=== PATIENT | female | born 1965 | race Two or more races ===

== ENCOUNTER 2018-07-17 09:11 | Emergency (ER) | payer SELFPAY ==
[~2018-07-17] VITALS: Ht 152.4 cm; Wt 119.7 kg
[2018-07-17] MEDS ORDERED: SODIUM CHLORIDE 0.9% 1,000 ML IV ONE ×2 (09:41)
[2018-07-17] MEDS ORDERED: LIDOCAINE VISCOUS 2% 15ML UD PO ONE (09:45)
[2018-07-17] MEDS ORDERED: ALUM & MAG HYDROX-SIMETH LIQ(MAALOX) 30 ML PO ONE (09:45)
[2018-07-17] MEDS ORDERED: DONNATAL 5ml ORAL Elix (BELLADONNA ALK-PHENOBARB) PO ONE (09:45)
[2018-07-17 09:48] LABS: Basophils # (auto) 0 uL; Basophils % (auto) 0.5 % (0.0-2.0); Eosinophils # (auto) 0.1 uL; Eosinophils % (auto) 2.1 % (0.0-7.0); Hematocrit 40.8 % (36.0-46.0); Hemoglobin 13.4 g/dL (12.2-16.2); Lymphocytes # (auto) 1.7 uL; Mean Corpuscular Hemoglobin 29.3 pg (28.0-32.0); Mean Corpuscular Hgb Conc. 32.9 g/dL (32.0-36.0); Mean Corpuscular Volume 89.1 fL (80.0-100.0); Monocytes # (auto) 0.6 uL; Monocytes % (auto) 8.7 % (0.0-12.0); Neutrophils % (auto) 61.7 % (37.0-80.0); Platelet Count (auto) 357 10^3/uL (140-450); Red Blood Cells 4.58 10^6/uL (4.0-5.20); Red Cell Distribution Width 13.8 % (11.8-14.3); White Blood Cell 6.5 10^3/uL (4.4-10.8)
[2018-07-17] MEDS ORDERED: ONDANSETRON HCL 4 MG/2 ML VIAL IV ONE (10:00)
[2018-07-17 10:05] LABS: Alanine Aminotransferase 35 U/L (13-56); Albumin 3.2 g/dL (3.4-5.0); Anion Gap 8 (5-15); Aspartate Aminotransferase 23 U/L (15-37); BUN/Creatinine Ratio 14.7; Blood Urea Nitrogen 11 mg/dL (7-18); Calcium 8.9 mg/dL (8.5-10.1); Carbon Dioxide 27 mmol/L (21-32); Chloride 107 mmol/L (98-107); GFR African American 104 mL/min; GFR Non-African American 86 mL/min; Glucose 113 mg/dL (74-106); Lipase 45 U/L (73-393); Potassium 4.7 mmol/L (3.5-5.1); Sodium 142 mmol/L (136-145)
[2018-07-17 10:07] VITALS: BP 145/95
[2018-07-17 10:10] LABS: Alkaline Phosphatase 115 U/L (45-117); Bilirubin, Total 0.3 mg/dL (0.2-1.0); Total Protein 7.6 g/dL (6.4-8.2)
[2018-07-17 11:58] LABS: Urine WBC None Seen /hpf (0 - 5)
[2018-07-17 12:24] LABS: Urine Bacteria NONE SEEN /hpf (None Seen); Urine Blood Negative /uL (Negative); Urine Specific Gravity 1.011 (1.001-1.035)
== END 2018-07-17 13:24 | disposition home or self-care (01) ==
LOC: ER 09:11
DX: K80.80 Other cholelithiasis without obstruction (principal); E11.9 Type 2 diabetes mellitus without complications
CPT/HCPCS: 36415; 71045; 74176; 80053; 81001; 83690; 84484; 85025; 93005; 94761; 96361; 96374; 99284; J2405